=== PATIENT | male | born 1985 | race Caucasian/White ===

== ENCOUNTER → 2020-10-08 | Outpatient (CLI) | payer OTHER ==
[~2020-10-08] MED LIST: FLEXERIL PO; IBUPROFEN 800800 MG PO; NORCO 5-325 TA1 EACH PO
--- NOTE | 2020-10-09 09:22 | TST ---
[place] [address] TREADMILL STRESS TEST Name: MOISES SEVILLA Hernan Room: [facility]#: [id number] Admission: 10/08/20 Attend Phys: Ryne Raines DO Discharge: Date of : 81 Date of Service: 10/08/20 1634 Report #: [id number] THIS REPORT FOR: cc: Ryne Raines, Shawn Burks MD [facility] ~ CC: Ryne Raines DO DATE OF SERVICE: 10/08/2020 PROCEDURE: Exercise stress test. INDICATIONS: Exercise stress test was requested in this patient with a history of chest pain. PROCEDURE: The patient was exercised on a standard Jan protocol treadmill test without imaging. RESULTS: The patient was able to exercise for 12 minutes and 2 seconds, achieving a peak heart rate of 194, which was greater than 90% of maximum predicted heart rate for the patient's age. His resting heart rate of 78, blood pressure 126/94. Peak blood pressure 193/78. In recovery, the patient had heart rate 93 and blood pressure 126/87. The patient denied chest pain with exercise, which was terminated due to achieving target heart rate. The patient's resting ECG showed a normal sinus rhythm with no significant ST or T-wave changes noted at baseline. With exercise, there were no arrhythmias noted. There was J-point depression with exercise, but there was no significant ST-segment depression at 80 milliseconds after the J-point. There were no arrhythmias noted with exercise. IMPRESSION: 1. Excellent exercise tolerance. 2. No chest pain with exercise. 3. No ischemic ST segment changes noted with exercise. 4. Negative exercise stress test for myocardial ischemia. CLINICAL RESPONSE: Nonischemic. ECG RESPONSE: [place] [address] TREADMILL STRESS TEST Name: MOISES SEVILLA Room: [facility]#: [id number] Admission: 10/08/20 Attend Phys: Ryne Raines DO Discharge: Date of : 81 Date of Service: 10/08/20 1634 Report #: [id number] This exercise stress test is felt to represent a low risk for predicting future cardiac events. <ELECTRONICALLY SIGNED> By: Shawn Banks MD, FACC 10/09/20 0922 1634 1950 Shawn Banks MD, FACC /nt
== END ==
LOC: M.CRD 14:10
PROVIDERS: ATTEND Family Medicine
DX: R07.9 Chest pain, unspecified (principal)

== ENCOUNTER → 2020-11-11 | Outpatient (CLI) | payer OTHER | LOC: M.SLEEPLAB 09:58 → M.PUL 10:00 | PROVIDERS: ATTEND Family Medicine | DX: G47.33 Obstructive sleep apnea (adult) (pediatric) (principal) ==

== ENCOUNTER 2021-04-18 00:17 | Emergency (ER) | payer OTHER ==
[~2021-04-18] VITALS: Ht 188 cm; Wt 104.3 kg
[2021-04-18] MEDS ORDERED: OMEPRAZOLE 20 M20 M1 PO (00:35)
[2021-04-18 00:37] LABS: URINE BILIRUBIN NEGATIVE (Negative); URINE BLOOD NEGATIVE (Negative); URINE CLARITY CLEAR; URINE COLOR YELLOW; URINE GLUCOSE-RANDOM NEGATIVE (Negative); URINE KETONES TRACE (Negative); URINE LEUKOCYTES-REFLEX NEGATIVE (Negative); URINE NITRITE-REFLEX NEGATIVE (Negative); URINE PROTEIN NEGATIVE (Negative); URINE UROBILINOGEN 0.2 E.U./dl (0.2-1.0)
[2021-04-18 00:46] LABS: AMP/METHAMP Negative (Negative); BARBITURATES Negative (Negative); BENZODIAZEPINES Negative (Negative); COCAINE Negative (Negative); METHADONE Negative (Negative); OPIATES Negative (Negative); PCP Negative (Negative); THC Negative (Negative)
[2021-04-18 01:16] LABS: ABSOLUTE EOSINOPHILS 0.1 thou/uL (0.0-0.7); ABSOLUTE LYMPHOCYTES 2.2 thou/uL (0.8-5.3); ABSOLUTE MONOCYTES 0.5 thou/uL (0.0-1.2); ABSOLUTE NEUTROPHILS 3.2 thou/uL (1.6-8.1); BASOPHILS 0.3 %; EOSINOPHILS 1.8 %; HEMATOCRIT 41.9 % (42.0-52.0); HEMOGLOBIN 14.6 gm/dL (14.0-18.0); LYMPHOCYTES 36.7 %; MCH 30.1 pg (26.0-34.0); MCHC 34.9 g/dL (28.0-37.0); MCV 86.3 fL (80.0-100.0); MONOCYTES 7.8 %; MPV 6.7 fl. (7.2-11.1); NUCLEATED RBCS 0 /100WBC; PLATELET COUNT* 243 thou/uL (150-400); POLYS 53.4 %; RBC 4.86 mil/uL (4.50-6.00); RDW-CV 12.5 % (10.5-14.5); WBC 5.9 thou/uL (4.0-11.0)
[2021-04-18 01:54] LABS: CALCIUM 8.3 mg/dL (8.5-10.1); CREATININE 0.9 mg/dL (0.6-1.3); POTASSIUM 3.7 mmol/L (3.5-5.1)
[2021-04-18 01:58] LABS: ALBUMIN 3.9 g/dL (3.4-5.0); MAGNESIUM 2.5 mg/dL (1.8-2.4); TOTAL BILIRUBIN 0.2 mg/dL (<0.1-1.0)
[2021-04-18 03:52] VITALS: BP 124/84
--- NOTE | 2021-04-18 10:23 | EKG ---
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 : 1985 Requested By: Daniela Mata Order Number: [id number] MD: Shawn Banks Measurements Intervals [place] Rate: 71 P: 25 UT: 162 QRS: -20 QRSD: 106 T: -21 QT: 405 QTc: 441 Interpretive Statements Sinus rhythm Left ventricular hypertrophy Nonspecific T abnormalities, inferior leads No previous ECG available for comparison Electronically Signed On 04-18-2021 10:23:39 CDT by Shawn Banks [email or web address] <ELECTRONICALLY SIGNED> By: Shawn Banks MD, [facility] 04/18/21 1023 0058 Shawn Banks MD, [facility] /EPI
--- NOTE | 2021-04-18 10:24 | EKG ---
[place] [address] ELECTROCARDIOGRAM REPORT Name: MOISES SEVILLA Room: [facility]#: [id number] Admission: 04/18/21 Attend Phys: Discharge: 04/18/21 Date of : 81 Date of Service: 04/18/21301 Report #: [id number] THIS REPORT FOR: //name// 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: [place] : 1985 Requested By: Daniela Mata Order Number: [id number] MD: Shawn Banks Measurements Intervals [place] Rate: 64 P: 26 UT: 160 QRS: -20 QRSD: 108 T: -19 QT: 428 QTc: 442 Interpretive Statements Sinus rhythm Left ventricular hypertrophy Nonspecific T abnormalities, inferior leads Compared to ECG 04/18/2021 00:58:13 No significant changes Electronically Signed On 04-18-2021 10:24:17 CDT by Shawn Banks [email or web address] <ELECTRONICALLY SIGNED> By: Shawn Banks MD, FACC 04/18/21 1024 1 030 Shawn Banks MD, [facility] /EPI
== END 2021-04-18 03:53 | disposition home or self-care (01) ==
LOC: M.ERS 00:17
PROVIDERS: Emergency Medicine
DX: R94.31 Abnormal electrocardiogram [ECG] [EKG] (principal); J45.909 Unspecified asthma, uncomplicated; Z79.899 Other long term (current) drug therapy

== ENCOUNTER → 2021-04-27 | Outpatient (CLI) | payer OTHER ==
[~2021-04-27] MED LIST changes: +OMEPRAZOLE 20 M20 M1 PO
== END ==
LOC: M.CT 12:52
PROVIDERS: ATTEND Internal Medicine
DX: Z13.6 Encounter for screening for cardiovascular disorders (principal); R42 Dizziness and giddiness; R94.31 Abnormal electrocardiogram [ECG] [EKG]

== ENCOUNTER → 2021-10-21 | Outpatient (CLI) | payer OTHER ==
--- NOTE | 2021-10-21 17:16 | EXE ---
[place] [address] STRESS ECHOCARDIOGRAM Name: MOISES SEVILLA Hernan Room: [facility]#: [id number] Admission: 10/21/21 Attend Phys: BuckEryn NorrisElton Joaquin, Discharge: Date of : 81 Date of Service: 10/21/21 1716 Report #: [id number] THIS REPORT FOR: cc: Ryne Raines Adam J DO Liston, Michael J. MD [facility] ~ APPROVED REPORT Study performed: 10/21/2021 16:17:37 Exam: Comprehensive 2D, Doppler, and color-flow Echocardiogram Indication: Chest pain, Abnormal EKG Patient Location: Out-Patient Stress Nurse: Ruth Suazo RN Supervising Physician: Jose White MD Ht: 6 ft 2 in HR: 76 bpm BP: 127/99 mmHg Medical History Cardiac Risk Factors: Tobacco History (Former) Procedure The patient underwent an Exercise Stress Test using the Jan Protocol. Blood pressure, heart rate, and EKG were monitored. An Echocardiogram was performed by information technology technician in four stages in quad fashion. At peak stress, four selected images were obtained and placed side by side with resting images for comparison. Stress Test Details Stress Test: Exercise stress testing was performed using a Jan protocol. HR Resting HR: 76 bpm Max Heart Rate (APMHR): 182 bpm Max HR Achieved: 167 bpm Target HR (85% APMHR): 154 bpm % of APMHR: 91 Recovery HR: 84 bpm HR response to stress: Normal HR response to stress BP Resting BP: 127/99 mmHg Max BP: 162/76 mmHg Recovery BP: 142/[place] [address] STRESS ECHOCARDIOGRAM Name: AMANDAALYSSIAMOISES N Room: [facility]#: [id number] Admission: 10/21/21 Attend Phys: Shruthi Nuñez, Discharge: Date of : 81 Date of Service: 10/21/21 1716 Report #: [id number] BP response to stress: Normal blood pressure response to stress. ECG Resting ECG: Sinus Rhythm Stress ECG: Sinus Tachycardia ST Change: None Arrhythmia: None Recovery ECG: Sinus Rhythm Recovery ST Change: None Recovery Arrhythmia: None Clinical Reason for Termination: Completed protocol Exercise duration: 10 min 48 sec Highest Stage Achieved: Stage 4: 4.2 mph at 16% grade. Exercise capacity: 12.59 METs The patient exhibited good exercise tolerance. He had no significant cardiac symptoms on the standard Jan protocol. Stress ECG Conclusion The baseline twelve-lead EKG shows sinus rhythm without significant ST segment or T wave abnormality. EKGs obtained during and post exercise show sinus rhythm and sinus tachycardia with no significant ST segment or T wave changes when compared to baseline. There were no stress-induced arrhythmias. Pre-Stress Echo The resting Echocardiogram showed normal left ventricular contractility with an estimated Ejection Fraction of about 55-60%. The resting echocardiogram demonstrated normal wall motion in all wall segments. Post-Stress Echo The stress Echocardiogram showed normal left ventricular contractility with an estimated Ejection Fraction of about >70%. Compared to rest, there were no stress-induced wall motion abnormalities. Conclusion Clinical Response: Non-ischemic Exercise Capacity: Average Stress ECG Response: Non-ischemic Stress Echo Images: [place] [address] STRESS ECHOCARDIOGRAM Name: MO[facility]ES SEVILLA [id number] Admission: 10/21/21 Attend Phys: Shruthi Nuñez, Discharge: Date of : 81 Date of Service: 10/21/211715 Report #: [id number] Other Information Study Quality: Good <ELECTRONICALLY SIGNED> By: Jermaine Zaman MD, FACC 10/21/211715 15 15 Jermaine Zaman MD, FACC /INF
== END ==
LOC: M.CRD 10-01 09:00
PROVIDERS: ATTEND Internal Medicine
DX: R00.0 Tachycardia, unspecified (principal); R94.31 Abnormal electrocardiogram [ECG] [EKG]; R06.02 Shortness of breath; R07.9 Chest pain, unspecified